=== PATIENT | female | born 1965 | race American Indian/Alaskan Native ===

== ENCOUNTER 2019-04-26 07:55 | Outpatient (CLI) | payer MEDICAID | END 2019-04-26 07:56 | disposition home or self-care (01) | LOC: LABHHL 07:55 | PROVIDERS: ATTEND Surgery | DX: C50.111 Malignant neoplasm of central portion of right female breast (principal) | CPT/HCPCS: 88305 ==

== ENCOUNTER 2019-05-13 12:00 | Outpatient (CLI) | payer MEDICAID ==
--- NOTE | 2019-05-13 14:52 | Ultrasound Report ---
COMPLETE RIGHT BREAST ULTRASOUND HISTORY: Newly diagnosed right breast cancer. COMPARISON: 03/29/2019 right mammogram and right breast ultrasound from [facility] FINDINGS: Complete sonographic evaluation including imaging of the four quadrants and subareolar aspe ct of the right breast demonstrates pronounced skin thickening and attenuation of sound. No distinct breast mass is identified. However, several abnormal right axillary lymph nodes with no central fat. The largest is irregular and measures 2.1 x 2.9 x 1.0 cm. IMPRESSION: A limited sonographic examination of the breast secondary to pronounced lymphedema of the breast. Leena picious right axillary lymph nodes for which ultrasound-guided needle biopsy has been requested. BIRADS 6: Known biopsy proven malignancy. Signer Name: Darin Reynaga MD Signed: 05/13/2019 2:48 PM Workstation Name: [id number]
--- NOTE | 2019-05-13 15:14 | Ultrasound Report ---
ULTRASOUND-GUIDED NEEDLE CORE BIOPSY OF WITH CLIP PLACEMENT CLINICAL: Known right breast cancer and right axillary lymphadenopathy. FINDINGS: The procedure was explained to the patient and informed consent was obtained. Ultrasound demonstrated several abnormal right axillary lymph nodes.. I marked the breast with a felt tip marker and a timeout was called. The skin was prepped with Chloro -Prep and anesthetized with 1% lidocaine. Needle core biopsy of an axillary lymph node was performed through a small dermatotomy using ultrasou nd guidance, 2% lidocaine with epinephrine for deep anesthesia and a 18-gauge coaxial Achieve biopsy device. 3 cores were obtained and placed in formalin. A clip was deployed within the lymph node. The patient tolerated the procedure well and there were no apparent complications. Hemostasis was ach ieved with minimal effort and a sterile dressing was applied. She left the department in good condition and was given instructions for wound care and follow-up. IMPRESSION: Uncomplicated ultrasound guided needle core biopsy with clip placement right axillary lym ph node. Signer Name: Darin Reynaga MD Signed: 05/13/2019 3:09 PM Workstation Name: [id number]
== END 2019-05-13 12:01 | disposition home or self-care (01) ==
LOC: SPVWC 12:00
PROVIDERS: ATTEND Surgery
DX: R59.1 Generalized enlarged lymph nodes (principal); C77.3 Secondary and unspecified malignant neoplasm of axilla and upper limb lymph nodes; C50.111 Malignant neoplasm of central portion of right female breast
CPT/HCPCS: 38505; 76641; 76942; 88305; A4648

== ENCOUNTER 2019-09-03 12:32 | Outpatient (CLI) | payer MEDICAID ==
--- NOTE | 2019-09-03 14:13 | Ultrasound Report ---
BILATERAL DIGITAL DIAGNOSTIC MAMMOGRAM WITH CAD 09/03/2019 RIGHT COMPLETE BREAST ULTRASOUND INDICATION: Known right breast cancer status post radiation and on chemotherapy. F/U mammo, CA TECHNIQUE: Digital bilateral mammographic imaging was performed. Complete ultrasound of all four (4) quadrants was performed. This examination was interpreted with the benefit of Computer-Aided Detecti on (CAD) analysis. COMPARISON: 10/18/2018 bilateral mammogram and right mammogram from [facility] and right mammog polo from 03/29/2019. FINDINGS: Breast Density: The right breast is heterogeneously dense and there are scattered fibroglandular dens ities in the left breast. MAMMOGRAPHIC FINDINGS: An increased number of right segmental pleomorphic calcifications at 12:00 concepcion tered approximately 4.5 cm from the nipple. Calcifications extend to the nipple. No mass or architectural drafting instructor ural distortion of the right breast. Pronounced skin thickening of the right breast is unchanged sinc e the last exam. A right axillary lymph node with a biopsy clip. There is no evidence of dominant mas s, suspicious calcifications or architectural distortion in the left breast. Left [id number]. ULTRASOUND FINDINGS: Complete sonographic evaluation of all 4 quadrants and retroareolar region was p erformed. Ultrasound of the right breast demonstrated no mass, cyst or suspicious shadowing. Skin t hickening is more pronounced at the nipple. IMPRESSION: Known right breast cancer with increased number of malignant calcifications on the mammog polo. This probably indicates a treatment response and does not suggest progression of disease. No oth er significant findings. Negative right breast ultrasound. No suspicious lymph nodes. Follow up recommendation: Clinical exam BI-RADS Category 6: Known Biopsy-Proven Malignancy. A "normal" or negative report should not discourage follow up or biopsy of a clinically significant f inding. A written summary of these findings will be mailed to the patient. The patient will be entered in fib roglandular densities in the left breast. I a mammography reporting system which will generate a eileen nder letter for the patient's next appointment at the appropriate interval. According to the [employer], yearly mammograms are recommended starting at age 40 and continuing as long as a woman is in good health. Breast MRI is recommended for women with an indy roximately 20-25% or greater lifetime risk of breast cancer, including women with a strong family his tory of breast or ovarian cancer and women who have been treated for Hodgkin's disease. Signer Name: Darin Reynaga MD Signed: 09/03/2019 2:09 PM Workstation Name: [id number]
== END 2019-09-03 12:33 | disposition home or self-care (01) ==
LOC: SPVWC 12:32
PROVIDERS: ATTEND Surgery
DX: R92.8 Other abnormal and inconclusive findings on diagnostic imaging of breast (principal); C50.911 Malignant neoplasm of unspecified site of right female breast
CPT/HCPCS: 77066

== ENCOUNTER 2019-10-21 05:47 | Observation (INO) | payer MEDICAID ==
--- NOTE | 2019-10-16 11:04 | Anesthesia Consultation ---
Anesthesia Consult and Med Hx Date of service: 10/21/19 - Airway Anesthetic Teeth Evaluation: Good ROM Head & Neck: Adequate Mental/Hyoid Distance: Adequate Mallampati Class: Class II Intubation Access Assessment: Good - Pulmonary Exam CTA: Yes - Cardiac Exam Cardiac Exam: No Murmur - Pre-Operative Health Status ASA Pre-Surgery Classification: ASA2 Proposed Anesthetic Plan: General Nerve Block: pec - Cardiovascular System Hx Hypertension: Yes (SINCE 2017) - Central Nervous System Hx Back Pain: Yes ("L3-L4 ARE ON TOP OF THE OTHER") Hx Psychiatric Problems: No - Hematic Hx Anemia: Yes - Other Systems Hx Alcohol Use: No Hx Substance Use: No Hx Cancer: Yes Hx Obesity: Yes (BMI 32)
[2019-10-21] MEDS ORDERED: MIDAZOLAM 2 MG/2 ML INJ IV NR (07:00)
[2019-10-21] MEDS ORDERED: LACTATED RINGERS 1,000 ML IV SCH ×2 (07:00→14:00)
[2019-10-21] MEDS ORDERED: CELECOXIB 200 MG CAP PO NR (07:00)
[2019-10-21] MEDS ORDERED: GABAPENTIN 300 MG CAP PO NR (07:00)
[2019-10-21] MEDS ORDERED: FAMOTIDINE 20 MG TAB PO NR (07:00)
[2019-10-21] MEDS ORDERED: fentaNYL 100 MCG/2 ML INJ IV NR (07:30)
[2019-10-21] MEDS ORDERED: HYDROmorphone 1 MG/1 ML INJ IV PRN (07:30)
--- NOTE | 2019-10-21 07:31 | Anesthesia Day of Surgery ---
Anesthesia Day of Surgery - Day of Surgery Patient Examined: Yes Patient H&P Reviewed: Yes Patient is NPO: Yes
[2019-10-21] MEDS ORDERED: dexAMETHasone 4 MG/ML VIAL ONE (07:37)
[2019-10-21] MEDS ORDERED: cloNIDine/PF 1,000 MCG/10 ML VIAL EP ONE (07:37)
[2019-10-21] MEDS ORDERED: BUPIVACAINE-EPINEPHRINE/PF 0.25%-1:200,000 (30 ML) VIAL INFILTRATI ONE (07:37)
[2019-10-21] MEDS ORDERED: ROCURONIUM 50 MG/5 ML INJ IV ONE (07:39)
[2019-10-21] MEDS ORDERED: fentaNYL 100 MCG/2 ML INJ ONE ×2 (07:39)
[2019-10-21] MEDS ORDERED: LIDOCAINE MPF (2%) 20 MG/1 ML VIAL 5 ML ONE (07:39)
[2019-10-21] MEDS ORDERED: propofoL 200 MG/20 ML VIAL IV ONE (07:40)
[2019-10-21] MEDS ORDERED: ceFAZolin/STERILE WATER 2 GM/20 ML SYRINGE IV NR (08:30)
[2019-10-21] MEDS ORDERED: WATER FOR IRRIG STERILE 1,500 ML BOTTLE IR ONE (09:08)
[2019-10-21] MEDS ORDERED: HYDROmorphone 1 MG/1 ML INJ ONE ×3 (09:25→14:07)
[2019-10-21] MEDS ORDERED: ceFAZolin 1 GM VIAL ONE (12:42)
[2019-10-21] MEDS ORDERED: ePHEDrine SULFATE 50 MG/1 ML INJ ONE (12:58)
[2019-10-21] MEDS ORDERED: diphenhydrAMINE 25 MG CAP PO PRN (13:22)
[2019-10-21] MEDS ORDERED: ACETAMINOPHEN 325 MG TAB PO PRN (13:22)
[2019-10-21] MEDS ORDERED: ONDANSETRON 4 MG/2 ML INJ IV PRN (13:22)
[2019-10-21] MEDS ORDERED: METOCLOPRAMIDE 10 MG TAB PO PRN (13:22)
--- NOTE | 2019-10-21 13:22 | Operative Report ---
Operative Report Operative Report: Operative Report: Date of Service: October 21, 2019 Preoperative diagnosis: Multicentric right breast cancer of the upper outer and central quadrants Postoperative diagnosis: Same Procedure: Bilateral total mastectomy Surgeon: Magalie Donovan M.D. Optometrist Owner: Dr. Coleman Anesthesia: Gen. Findings: Bilateral mastectomy; right breast highly vascular; right breast clip present within mastectomy specimen Complications: None Drains: Bilateral 19 Fr JPs Estimated blood loss: 150 cc Disposition: PACU in good condition Indications for operative procedure: This is a 53-year-old lady with Stage IV right breast cancer, [id number] (skeletal metastasis). She recently completed AC/Taxol with prior PET findings of metastatic disease now with resolution. Recommendations were to proceed with a right mastectomy to decrease her disease burdern given good clinical response as noted on PET, physical exam and diagnostic mammogram and utlrasound imaging. She wished to proceed with a left prophylactic mastectomy as well. She wished to proceed with the above procedure. Patient's case was presented at cancer conference as well with recommendations of proceeding with a right mastectomy to decrease disease burden given good clinical response to chemotherapy. Procedure in detail: Anesthesia placed bilateral pectoral muscle block prior to going to the operating room. The patient was taken to the operating room and was placed supine. Gen. anesthesia was administered. Bilateral breasts and left axilla was prepped and draped in the normal sterile operative fashion. Timeout was performed. Typical mastectomy incision marking was made, right mastectomy including area of prior skin involvement. Attention was taken towards the left breast first. A skin incision was made with a 10 blade knife and dissection taken down to the subcutaneous tissues. First began raising of the superior flap to the level of the clavicle superiorly and posteriorly to the pectoralis muscle. Followed by raising of the medial flap to the level of the sternum and posteriorly to the pectoralis muscle. Followed by raising of the lateral flap to the level of the latissimus dorsi muscle and taken down posteriorly. Then proceeded with raising of the inferior flap to the level of the inframammary fold taken posterior to the pectoralis muscle.The mastectomy/breast was removed from the pectoralis muscle without incident. The specimen was appropriately marked and sent to pathology. Hemostasis was noted. The chest wall was irrigated and suctioned. Hemostasis was obtained. One 19 [place] EMMA drain was placed. The subcutaneous tissues were closed using an interrupted 3-0 Vicryl followed by closing of the skin using a running 4-0 Monocryl and dermabond. Attention was then taken towards the right breast. A skin incision was made with a 10 blade knife and dissection taken down to the subcutaneous tissues. First began raising of the superior flap to the level of the clavicle superiorly and posteriorly to the pectoralis muscle. Followed by raising of the medial flap to the level of the sternum and posteriorly to the pectoralis muscle. Followed by raising of the lateral flap to the level of the latissimus dorsi muscle and taken down posteriorly. Then proceeded with raising of the inferior flap to the level of the inframammary fold taken posterior to the pectoralis muscle. Breast noted to be highly vascular. The mastectomy/breast was removed from the pector jenna muscle without incident. The specimen was appropriately marked and sent to radiology with clip present and then sent to pathology. Hemostasis was noted. The chest wall was irrigated and suctioned. Hemostasis was obtained. One 19 [place] EMMA drain was placed. The subcutaneous tissues were closed using an interrupted 3-0 Vicryl followed by closing of the skin using a running 4-0 Monocryl and dermabond. She tolerated surgery very well and was awaken from anesthesia and transported to PACU in good conidition.
[2019-10-21] MEDS ORDERED: MORPHINE 2 MG/1 ML INJ IV PRN (13:24)
--- NOTE | 2019-10-21 13:27 | Short Stay Summary ---
Short Stay Documentation Date of service: 10/21/19 - History H&P: obtained from office - Allergies and Medications Current Medications: Allergies No Known Allergies Allergy (Verified 10/15/19 15:54) Home Medications Medication Instructions Recorded Confirmed Last Taken Type Zolpidem [Ambien] 5 mg PO QHS PRN 10/15/19 10/21/19 10/14/19 20:00 History fentaNYL [Fentanyl] 50 mcg TD Q72H 10/15/19 10/21/19 10/17/19 08:00 History hydroCHLOROthiazide [HCTZ] 25 mg PO QDAY 10/15/19 10/21/19 10/20/19 08:00 History oxyCODONE /ACETAMINOPHEN [Percocet 1 tab PO Q6HR PRN 10/15/19 10/21/19 10/14/19 20:00 History 5/325] Active Medications Acetaminophen (Tylenol) 650 mg PO Q6H PRN PRN Reason: Pain MILD(1-3)/Fever >100.5/RAINES Cefazolin Sodium (Ancef/Sterile Water 2 Gm/20 Ml) 2 gm IV PREOP NR Stop: 10/21/19 17:00 Celecoxib (Celebrex) 200 mg PO PREOP NR Stop: 10/21/19 16:00 Last Admin: 10/21/19 06:30 Dose: 200 mg Documented by: Diphenhydramine HCl (Benadryl) 25 mg PO Q8H PRN PRN Reason: Itching Docusate Sodium (Colace) 100 mg PO BID DENIS Famotidine (Pepcid) 20 mg PO PREOP NR Stop: 10/21/19 18:00 Last Admin: 10/21/19 06:30 Dose: 20 mg Documented by: Gabapentin (Gabapentin) 600 mg PO PREOP NR Stop: 10/21/19 18:00 Last Admin: 10/21/19 06:30 Dose: 600 mg Documented by: Hydromorphone HCl (Dilaudid) 0.5 mg IV Q10MIN PRN PRN Reason: Pain , Severe (7-10) Stop: 10/21/19 22:00 Lactated Ringer's (Lactated Ringers) 1,000 mls @ 100 mls/hr IV DIRECT DENIS Last Admin: 10/21/19 06:50 Dose: 100 mls/hr Documented by: Lactated Ringer's (Lactated Ringers) 1,000 mls @ 125 mls/hr IV DIRECT DENIS Metoclopramide HCl (Reglan) 10 mg PO Q6H PRN PRN Reason: Nausea And Vomiting Midazolam HCl (Versed) 2 mg IV PREOP NR Stop: 10/21/19 23:00 Last Admin: 10/21/19 07:47 Dose: 2 mg Documented by: Morphine Sulfate (Morphine) 2 mg IV Q4H PRN PRN Reason: Pain, Moderate (4-6) Ondansetron HCl (Zofran) 4 mg IV Q8H PRN PRN Reason: N/V unrelieved by Reglan Oxycodone/Acetaminophen (Percocet 5/325) 2 tab PO Q6H PRN PRN Reason: Pain, Moderate (4-6) Sodium Chloride (Sodium Chloride Flush Syringe 10 Ml) 10 ml IV PRN PRN PRN Reason: LINE FLUSH - Brief post op/procedure progress note Date of procedure: 10/21/19 Pre-op diagnosis: Right breast cancer Post-op diagnosis: same Procedure: Bilateral mastectomy Anesthesia: GETA Findings: Right breast clip present within right mastectomy Surgeon: DARIAN STEVENS Estimated blood loss: other (150 cc) Pathology: list (chelly mastectomy) Specimen disposition: to lab Condition: stable - Disposition Condition at discharge: Good Disposition: [id number]-TRM GEN HOSP IP Short Stay Discharge Plan Activity: other (no heavy lifting) Diet: regular Wound: keep clean and dry Follow up with: LORENZA HARRIS [Primary Care Provider] - 7 Days DARIAN STEVENS MD [Staff Physician] - 7 Days
--- NOTE | 2019-10-21 13:32 | Mammography Report ---
SPECIMEN RADIOGRAPH RIGHT BREAST INDICATION: POST EXC BX. Right breast cancer. COMPARISON: 09/03/2019 mammogram FINDINGS: Segmental retroareolar malignant calcifications calcifications are identified within the specimen. A localizer clip is also identified approximately 3 cm from the posterior margin of the calcifications. This marker was not identified on the last mammogram. IMPRESSION: 1. Excision of known cancer. Signer Name: Darin Reynaga MD Signed: 10/21/2019 1:28 PM Workstation Name: [id number]
[2019-10-21] MEDS ORDERED: ONDANSETRON 4 MG/2 ML INJ ONE (13:38)
[2019-10-21] MEDS: oxyCODONE /ACETAMINOPHEN 5-325MG TAB PO PRN (16:10)
--- NOTE | 2019-10-21 17:37 | Post Anesthesia Evaluation ---
- Post Anesthesia Evaluation Patient Participated: Yes Airway Patent: Yes Stable Respiratory Function: Yes Nausea/Vomiting: No Temp > 96.8F: Yes Pain Manageable: Yes Adequeate Hydration: Yes Anesthesia Complications: No Block Receding Appropriately: Yes Patient on Ventilator: No
[2019-10-21] MEDS ORDERED: DOCUSATE SODIUM 100 MG CAP PO SCH (22:00)
[2019-10-22] MEDS: oxyCODONE /ACETAMINOPHEN 5-325MG TAB PO PRN (01:37)
--- NOTE | 2019-10-22 07:48 | Progress Note ---
Assessment and Plan This is a 53 year old lady with Stage IV right breast cancer POD#1 bilateral mastectomy, performed to decrease disease burden. 1. No acute events overnight. Pain in good control. 2. Bilateral chest incisions healing well, skin well perfused, no hematoma. 3. EMMA drain education. 4. OOB to hallway. 5. D/C planning for today. Subjective Date of service: 10/22/19 Principal diagnosis: Stage IV right breast cancer Interval history: POD#1 bilateral total mastectomy Objective - Constitutional Vitals: Vital Signs - 12hr 10/21/19 10/21/19 10/22/19 21:00 23:29 01:30 Temperature 98.1 F 98.4 F Pulse Rate 89 93 H Respiratory 20 20 Rate Blood Pressure 97/52 95/58 Blood Pressure 110/54 [Right] O2 Sat by Pulse 100 98 Oximetry 10/22/19 10/22/19 01:37 04:45 Temperature 99.1 F Pulse Rate 88 Respiratory 20 20 Rate Blood Pressure Blood Pressure 102/49 [Right] O2 Sat by Pulse 97 Oximetry General appearance: Present: no acute distress - EENT Eyes: PERRL ENT: hearing intact, clear oral mucosa Ears: bilateral: normal - Neck Neck: supple, normal ROM - Respiratory Respiratory effort: normal - Breasts Breasts: other (chelly chest incisions c/d/i; no hematoma; EMMA drains to bulb suction; skin well perfused) - Cardiovascular Rhythm: regular Extremities: no ischemia, pulses intact, pulses symmetrical, No edema, normal temperature, normal color, Full ROM - Gastrointestinal General gastrointestinal: Present: soft, non-tender, non-distended - Genitourinary Female genitourinary: deferred - Integumentary Integumentary: clear, warm, dry - Musculoskeletal Musculoskeletal: strength equal bilaterally - Neurologic Neurologic: moves all extremities - Psychiatric Psychiatric: appropriate mood/affect, intact judgment & insight, memory intact, cooperative Medications & Allergies - Medications Allergies/Adverse Reactions: Allergies No Known Allergies Allergy (Verified 10/15/19 15:54) Home Medications: Home Medications Medication Instructions Recorded Confirmed Last Taken Type Zolpidem [Ambien] 5 mg PO QHS PRN 10/15/19 10/21/19 10/14/19 20:00 History fentaNYL [Fentanyl] 50 mcg TD Q72H 10/15/19 10/21/19 10/17/19 08:00 History hydroCHLOROthiazide [HCTZ] 25 mg PO QDAY 10/15/19 10/21/19 10/20/19 08:00 History oxyCODONE /ACETAMINOPHEN [Percocet 1 tab PO Q6HR PRN 10/15/19 10/21/19 10/14/19 20:00 History 5/325] HYDROcodone/APAP 5-325 [[place] 1 each PO Q6HR PRN #20 tablet 10/21/19 Unknown Rx 5/325] Active Medications: Generic Name Dose Route Start Last Admin Trade Name Freq PRN Reason Stop Dose Admin Acetaminophen 650 mg 10/21/19 13:22 Tylenol PO Q6H PRN Pain MILD(1-3)/Fever >100.5/RAINES Diphenhydramine HCl 25 mg 10/21/19 13:22 Benadryl PO Q8H PRN Itching Docusate Sodium 100 mg 10/21/19 22:00 10/21/19 21:48 Colace PO 100 mg BID DENSI Administration Lactated Ringer's 1,000 mls @ 100 mls/hr 10/21/19 07:00 10/21/19 06:50 Lactated Ringers IV 100 mls/hr DIRECT DENIS Administration Lactated Ringer's 1,000 mls @ 125 mls/hr 10/21/19 14:00 Lactated Ringers IV DIRECT DENIS Metoclopramide HCl 10 mg 10/21/19 13:22 Reglan PO Q6H PRN Nausea And Vomiting Morphine Sulfate 2 mg 10/21/19 13:24 Morphine IV Q4H PRN Pain, Moderate (4-6) Ondansetron HCl 4 mg 10/21/19 13:22 Zofran IV Q8H PRN N/V unrelieved by Reglan Oxycodone/Acetaminophen 2 tab 10/21/19 13:22 10/22/19 01:37 Percocet 5/325 PO 2 tab Q6H PRN Administration Pain, Moderate (4-6) Sodium Chloride 10 ml 10/21/19 13:22 Sodium Chloride Flush Syringe 10 Ml IV PRN PRN LINE FLUSH
[2019-10-22 08:51] VITALS: BP 110/47
== END 2019-10-22 09:37 | disposition home or self-care (01) ==
LOC: OR 05:47 → OB 13:22
PROVIDERS: ADMIT Surgery; ATTEND Surgery
DX: C50.411 Malignant neoplasm of upper-outer quadrant of right female breast (principal); C50.412 Malignant neoplasm of upper-outer quadrant of left female breast; C50.111 Malignant neoplasm of central portion of right female breast
CPT/HCPCS: 19303; 64450; 76098; 88309; 96374; G0378; J0690; J0735; J1100; J1170; J2250; J2405; J2704; J3010; J7120; 88307